=== PATIENT | female | born 1935 | race Caucasian/White ===

== ENCOUNTER 2017-05-13 19:21 | Inpatient (IN) | payer OTHER ==
[~2017-05-13] VITALS: Ht 154.9 cm; Wt 56.5 kg
[~2017-05-13 19:21] MED LIST: AMLODIPINE BESY10 MG PO; APRESOLINE25 MG PO; ATENOLOL50 MG PO; COLCHICINE0.6 MG PO; HYDROCHLOROTHIA25 MG PO; LISINOPRIL10 MG PO; LISINOPRIL20 MG PO; PREDNISONE10 MG PO; TRAMADOL HCL50 MG PO; ULTRAM50 MG PO; ZESTRIL,PRINIVIL5 MG PO
[2017-05-13 22:28] LABS: BASOPHIL COUNT 0.1 K/uL (0-0.1); EOSINOPHIL (%) 0.2 % (0-5); HEMATOCRIT 37.5 % (36.0-46.0); IMMATURE GRANULOCYTE (%) 0.6 % (0.0-0.7); IMMATURE GRANULOCYTE COUNT 0.1 K/uL; INSTRUMENT ABS NEUTROPHIL CT 21.3 K/uL; LYMPHOCYTE COUNT 1.3 K/uL (1.0-2.8); MCH 29.3 PG (29.0-34.0); MCHC 32.8 G/DL (30.0-36.0); MCV 89.3 FL (83-99); MEAN PLAT.VOLUME 11.7 uM^3 (9.5-12.4); MONOCYTE (%) 6.3 % (3-12); MONOCYTE COUNT 1.5 K/uL (0-0.8); NEUTROPHIL (%) 87.4 % (45-76); NEUTROPHIL COUNT 21.3 K/uL (1.8-6.4); PLATELET COUNT 294 K/uL (156-360); RBC DIS.WIDTH-CV 15.2 % (11.8-14.6); RBC DIS.WIDTH-SD 48.9 % (39-53); WHITE BLOOD COUNT 24.4 K/uL (4.1-10.2)
[2017-05-13 22:36] LABS: CHLORIDE 106 mEq/L (99-109); POTASSIUM 4.4 mEq/L (3.7-5.4); SODIUM 140 mEq/L (136-147)
[2017-05-13 22:38] LABS: GLUCOSE 183 mg/dL (70-99)
[2017-05-13 22:39] LABS: ANION GAP 17 MEQ/L (2-14)
[2017-05-13 22:42] LABS: GFR ESTIMATE (CALCULATED) 16 mL/min/
[2017-05-13 22:43] LABS: UREA NITROGEN (BUN) 48 mg/dL (9-23)
[2017-05-14 00:05] LABS: INTER. NORMALIZED RATIO 1.1; PROTHROMBIN TIME 12.1 SEC (10.2-12.9)
[2017-05-14 02:41] VITALS: BP 169/71
[2017-05-14 06:45] LABS: HEMATOCRIT 35.8 % (36.0-46.0); MCH 29.4 PG (29.0-34.0); MCHC 32.4 G/DL (30.0-36.0); MCV 90.9 FL (83-99); MEAN PLAT.VOLUME 12.1 uM^3 (9.5-12.4); PLATELET COUNT 256 K/uL (156-360); RBC DIS.WIDTH-CV 15.4 % (11.8-14.6); RBC DIS.WIDTH-SD 51.1 % (39-53); RED BLOOD COUNT 3.94 M/uL (3.80-5.20); WHITE BLOOD COUNT 13.7 K/uL (4.1-10.2)
[2017-05-14 07:13] LABS: ALKALINE PHOSPHATASE 66 IU/L (3-129); ANION GAP 14 MEQ/L (2-14); CHLORIDE 103 MEQ/L (99-109); GFR ESTIMATE (CALCULATED) 15 mL/min/; GLUCOSE 180 mg/dL (70-99); POTASSIUM 5.3 MEQ/L (3.7-5.4); SAMPLE HEMOLYSIS CHECK 0; SAMPLE ICTERIC CHECK 0; SAMPLE LIPEMIA CHECK 0; SODIUM 138 MEQ/L (136-147); TOTAL BILIRUBIN 0.4 MG/DL (0.0-1.0); UREA NITROGEN (BUN) 58 mg/dL (9-23)
[2017-05-14 07:57] VITALS: BP 134/63
[2017-05-14 15:26] VITALS: BP 131/60
[2017-05-14] MEDS ORDERED: LISINOPRIL40 MG PO (15:31)
[2017-05-14] MEDS ORDERED: ALLOPURINOL300 MG PO (15:31)
[2017-05-14] MEDS ORDERED: CARVEDILOL12.5 MG PO (15:31)
[2017-05-14] MEDS ORDERED: COLCHICINE0.6 M1 PO (15:32)
[2017-05-14] MEDS ORDERED: HYDROCHLOROTH12.5 M3 PO (15:32)
[2017-05-14] MEDS ORDERED: HYDROCHLOROTHIA25 MG PO (15:35)
[2017-05-14 19:29] VITALS: BP 126/59
[2017-05-14 23:48] VITALS: BP 102/50
[2017-05-15] VITALS (8 sets, daily range): BP systolic 114–148; BP diastolic 48–65
[2017-05-15 06:46] LABS: ANION GAP 16 MEQ/L (2-14); CHLORIDE 107 MEQ/L (99-109); GLUCOSE 140 mg/dL (70-99); POTASSIUM 5.2 MEQ/L (3.7-5.4); SAMPLE HEMOLYSIS CHECK 0; SAMPLE ICTERIC CHECK 0; SAMPLE LIPEMIA CHECK 0; SODIUM 140 MEQ/L (136-147); UREA NITROGEN (BUN) 84 mg/dL (9-23)
[2017-05-15 06:48] LABS: GFR ESTIMATE (CALCULATED) 9 mL/min/
[2017-05-15 15:36] LABS: ADD MIUA? YES; BILIRUBIN NEGATIVE; BLOOD SMALL; COLOR YELLOW ((YELLOW)); GLUCOSE (STRIP) NEGATIVE; KETONES NEGATIVE; LEUKOCYTES NEGATIVE; NITRITE NEGATIVE; PROTEIN (STRIP) 30; SPECIFIC GRAVITY 1.015 (1.000-1.030); UROBILINOGEN 0.2 MG/DL (0.2-1.0)
[2017-05-15 16:58] LABS: BACTERIA NONE SEEN /HPF; EPITHELIAL CELLS RARE /HPF; MUCUS TRACE /LPF; RED BLOOD CELLS 0-5 /HPF (0-5); WHITE BLOOD CELLS 0-5 /HPF (0-5)
[2017-05-16 03:43] VITALS: BP 136/59
[2017-05-16 08:50] VITALS: BP 148/67
[2017-05-16] MEDS ORDERED: ASPIRIN81 M2 PO (09:54)
[2017-05-16] MEDS ORDERED: CARVEDILOL25 MG PO (09:55)
[2017-05-16] MEDS ORDERED: TRAMADOL HCL50 MG PO (10:00)
[2017-05-16 10:26] LABS: HEMATOCRIT 27.6 % (36.0-46.0); MCH 29.2 PG (29.0-34.0); MCHC 32.2 G/DL (30.0-36.0); MCV 90.5 FL (83-99); MEAN PLAT.VOLUME 12.5 uM^3 (9.5-12.4); PLATELET COUNT 183 K/uL (156-360); RBC DIS.WIDTH-CV 15.6 % (11.8-14.6); RBC DIS.WIDTH-SD 51.8 % (39-53)
[2017-05-16 10:31] LABS: ANION GAP 11 MEQ/L (2-14); CHLORIDE 109 MEQ/L (99-109); GLUCOSE 124 mg/dL (70-99); SAMPLE HEMOLYSIS CHECK 0; SAMPLE ICTERIC CHECK 0; SAMPLE LIPEMIA CHECK 0; SODIUM 142 MEQ/L (136-147); UREA NITROGEN (BUN) 72 mg/dL (9-23)
[2017-05-16 10:37] LABS: RED BLOOD COUNT 3.05 M/uL (3.80-5.20)
[2017-05-16 10:38] LABS: GFR ESTIMATE (CALCULATED) 20 mL/min/; POTASSIUM 4.1 MEQ/L (3.7-5.4)
[2017-05-16 11:41] LABS: ADD MIUA? YES; BILIRUBIN NEGATIVE; BLOOD SMALL; COLOR YELLOW ((YELLOW)); GLUCOSE (STRIP) NEGATIVE; KETONES NEGATIVE; LEUKOCYTES NEGATIVE; NITRITE NEGATIVE; PROTEIN (STRIP) NEGATIVE; SPECIFIC GRAVITY 1.012 (1.000-1.030); UROBILINOGEN 0.2 MG/DL (0.2-1.0)
[2017-05-16 12:02] LABS: BACTERIA RARE /HPF; EPITHELIAL CELLS 1+ /HPF; MUCUS TRACE /LPF; RED BLOOD CELLS 0-5 /HPF (0-5); WHITE BLOOD CELLS 0-5 /HPF (0-5)
[2017-05-16 12:15] VITALS: BP 161/67
[2017-05-16 12:59] LABS: UR CREATININE CONCENTRATION 65.4 MG/DL
[2017-05-16 16:39] VITALS: BP 169/70
[2017-05-16 20:17] VITALS: BP 163/71
[2017-05-17 00:02] VITALS: BP 142/66
[2017-05-17 04:43] VITALS: BP 143/59
[2017-05-17 06:25] LABS: EOSINOPHIL (%) 1.2 % (0-5); EOSINOPHIL COUNT 0.1 K/uL (0-0.3); HEMATOCRIT 24.7 % (36.0-46.0); IMMATURE GRANULOCYTE (%) 0.6 % (0.0-0.7); IMMATURE GRANULOCYTE COUNT 0.1 K/uL; INSTRUMENT ABS NEUTROPHIL CT 8.1 K/uL; LYMPHOCYTE COUNT 1.1 K/uL (1.0-2.8); MCH 30.5 PG (29.0-34.0); MCHC 33.2 G/DL (30.0-36.0); MCV 91.8 FL (83-99); MEAN PLAT.VOLUME 12.7 uM^3 (9.5-12.4); MONOCYTE (%) 8.5 % (3-12); MONOCYTE COUNT 0.9 K/uL (0-0.8); NEUTROPHIL (%) 78.5 % (45-76); NEUTROPHIL COUNT 8.1 K/uL (1.8-6.4); PLATELET COUNT 180 K/uL (156-360); RBC DIS.WIDTH-CV 15.6 % (11.8-14.6); RED BLOOD COUNT 2.69 M/uL (3.80-5.20); WHITE BLOOD COUNT 10.3 K/uL (4.1-10.2)
[2017-05-17 06:48] LABS: ALKALINE PHOSPHATASE 51 IU/L (3-129); ANION GAP 9 MEQ/L (2-14); CHLORIDE 113 MEQ/L (99-109); GLUCOSE 120 mg/dL (70-99); MAGNESIUM 2.1 mg/dl (1.3-2.7); POTASSIUM 3.6 MEQ/L (3.7-5.4); SAMPLE HEMOLYSIS CHECK 0; SAMPLE ICTERIC CHECK 0; SAMPLE LIPEMIA CHECK 0; SODIUM 146 MEQ/L (136-147); UREA NITROGEN (BUN) 55 mg/dL (9-23)
[2017-05-17 06:49] LABS: GFR ESTIMATE (CALCULATED) 29 mL/min/; TOTAL BILIRUBIN 0.6 MG/DL (0.0-1.0)
[2017-05-17 08:04] VITALS: BP 137/63
[2017-05-17 11:50] VITALS: BP 152/67
[2017-05-17 16:03] VITALS: BP 137/62
[2017-05-17 23:45] VITALS: BP 169/70
[2017-05-18 04:34] VITALS: BP 146/62
[2017-05-18 07:17] LABS: EOSINOPHIL (%) 3.8 % (0-5); EOSINOPHIL COUNT 0.4 K/uL (0-0.3); HEMATOCRIT 25.3 % (36.0-46.0); IMMATURE GRANULOCYTE (%) 0.9 % (0.0-0.7); IMMATURE GRANULOCYTE COUNT 0.1 K/uL; INSTRUMENT ABS NEUTROPHIL CT 7.2 K/uL; LYMPHOCYTE COUNT 1.1 K/uL (1.0-2.8); MCH 30.7 PG (29.0-34.0); MCHC 33.2 G/DL (30.0-36.0); MCV 92.3 FL (83-99); MEAN PLAT.VOLUME 12.9 uM^3 (9.5-12.4); MONOCYTE (%) 7.8 % (3-12); MONOCYTE COUNT 0.7 K/uL (0-0.8); NEUTROPHIL (%) 75.7 % (45-76); NEUTROPHIL COUNT 7.2 K/uL (1.8-6.4); PLATELET COUNT 197 K/uL (156-360); RBC DIS.WIDTH-CV 15.9 % (11.8-14.6); RBC DIS.WIDTH-SD 52.7 % (39-53); RED BLOOD COUNT 2.74 M/uL (3.80-5.20); WHITE BLOOD COUNT 9.5 K/uL (4.1-10.2)
[2017-05-18 07:40] LABS: ANION GAP 4 MEQ/L (2-14); CHLORIDE 112 MEQ/L (99-109); CREATINE KINASE 341 IU/L (1-294); GFR ESTIMATE (CALCULATED) 35 mL/min/; GLUCOSE 109 mg/dL (70-99); MAGNESIUM 1.9 mg/dl (1.3-2.7); POTASSIUM 3.6 MEQ/L (3.7-5.4); SAMPLE HEMOLYSIS CHECK 0; SAMPLE ICTERIC CHECK 0; SAMPLE LIPEMIA CHECK 0; SODIUM 143 MEQ/L (136-147); UREA NITROGEN (BUN) 34 mg/dL (9-23)
[2017-05-18 07:50] VITALS: BP 145/100; BP 172/75
[2017-05-18 11:19] VITALS: BP 166/72
[2017-05-18 16:10] VITALS: BP 142/67
[2017-05-18 19:44] VITALS: BP 167/74
[2017-05-19] VITALS (7 sets, daily range): BP systolic 133–187; BP diastolic 59–77
[2017-05-19 07:14] LABS: IRON 49 MCG/DL (35-150)
[2017-05-20] VITALS (8 sets, daily range): BP systolic 147–192; BP diastolic 66–84
[2017-05-20 10:36] LABS: ANION GAP 8 MEQ/L (2-14); CHLORIDE 111 MEQ/L (99-109); POTASSIUM 3.6 MEQ/L (3.7-5.4); SAMPLE HEMOLYSIS CHECK 0; SAMPLE ICTERIC CHECK 0; SAMPLE LIPEMIA CHECK 0; SODIUM 141 MEQ/L (136-147)
[2017-05-20 10:42] LABS: GFR ESTIMATE (CALCULATED) 46 mL/min/; UREA NITROGEN (BUN) 26 mg/dL (9-23)
[2017-05-20 10:45] LABS: GLUCOSE 198 mg/dL (70-99)
[2017-05-21 03:48] VITALS: BP 160/78
[2017-05-21 05:40] LABS: ANION GAP 8 MEQ/L (2-14); CHLORIDE 110 MEQ/L (99-109); GFR ESTIMATE (CALCULATED) 42 mL/min/; SAMPLE HEMOLYSIS CHECK 0; SAMPLE ICTERIC CHECK 0; SAMPLE LIPEMIA CHECK 0; SODIUM 142 MEQ/L (136-147); UREA NITROGEN (BUN) 24 mg/dL (9-23)
[2017-05-21 05:41] LABS: GLUCOSE 102 mg/dL (70-99); MAGNESIUM 1.6 mg/dl (1.3-2.7)
[2017-05-21 08:28] VITALS: BP 180/78
[2017-05-21 11:43] VITALS: BP 122/42
[2017-05-21 12:00] VITALS: BP 146/68
[2017-05-21] MEDS ORDERED: HYDROCODON-ACE1 EAC7 PO (13:41)
== END 2017-05-21 15:27 | DRG 200 ==
LOC: EME → EDBD 19:21 → 3EAST 05-14 00:47 → EDOF 05-14 00:47 → ENRESERV 05-14 00:56 → 3EAST 05-14 02:05
PROVIDERS: Emergency Medicine; Internal Medicine Nephrology; Surgery; Thoracic Surgery (Cardiothoracic Vascular Surgery)
PROC: 0W9B30Z Drainage of Left Pleural Cavity with Drainage Device, Percutaneous Approach (ICD-10-PCS; principal; 2017-05-14)
DX: S27.0XXA Traumatic pneumothorax, initial encounter (principal); S22.42XA Multiple fractures of ribs, left side, initial encounter for closed fracture; S42.112A Displaced fracture of body of scapula, left shoulder, initial encounter for closed fracture; W10.9XXA Fall (on) (from) unspecified stairs and steps, initial encounter; M62.82 Rhabdomyolysis; N17.9 Acute kidney failure, unspecified; E87.2 Acidosis; I12.9 Hypertensive chronic kidney disease with stage 1 through stage 4 chronic kidney disease, or unspecified chronic kidney disease; N18.3 Chronic kidney disease, stage 3 (moderate); M10.9 Gout, unspecified; K21.9 Gastro-esophageal reflux disease without esophagitis; D64.9 Anemia, unspecified; L98.9 Disorder of the skin and subcutaneous tissue, unspecified; Z79.82 Long term (current) use of aspirin
CPT/HCPCS: 70450; 71010; 71250; 72125; 74176; 76770; 80048; 80053; 81003; 82550; 82570; 83540; 83735; 84100; 84156; 84300; 84466; 84550; 85025; 85027; 85610; 85730; 92610 GN; 93005; 94010; 94640; 94640 76; 94667; 94668; 94799; 97530 GO; 99202; 99281; 99285; J1170; J1644; J2250; J3010; J3480; J7030; J7040; J7120

== ENCOUNTER 2017-05-29 11:13 | Inpatient (IN) | payer OTHER ==
[~2017-05-29] VITALS: Ht 152.4 cm; Wt 54.4 kg
[~2017-05-29 11:13] MED LIST changes: +ALLOPURINOL300 MG PO; +ASPIRIN81 M2 PO; +CARVEDILOL12.5 MG PO; +CARVEDILOL25 MG PO; +COLCHICINE0.6 M1 PO; +HYDROCHLOROTH12.5 M3 PO; +HYDROCODON-ACE1 EAC7 PO; +LISINOPRIL40 MG PO
[2017-05-29 11:39] LABS: HEMATOCRIT 25.2 % (36.0-46.0); MCHC 31.3 G/DL (30.0-36.0); MCV 95.8 FL (83-99); PLATELET COUNT 467 K/uL (156-360); RBC DIS.WIDTH-CV 17.4 % (11.8-14.6); RBC DIS.WIDTH-SD 60.3 % (39-53); WHITE BLOOD COUNT 13.3 K/uL (4.1-10.2)
[2017-05-29 11:40] LABS: RED BLOOD COUNT 2.63 M/uL (3.80-5.20)
[2017-05-29 11:47] LABS: CHLORIDE 103 mEq/L (99-109); POTASSIUM 3.9 mEq/L (3.7-5.4); SODIUM 143 mEq/L (136-147)
[2017-05-29 11:49] LABS: GLUCOSE 189 mg/dL (70-99)
[2017-05-29 11:50] LABS: ANION GAP 12 MEQ/L (2-14)
[2017-05-29 11:52] LABS: GFR ESTIMATE (CALCULATED) 23 mL/min/
[2017-05-29 11:53] LABS: UREA NITROGEN (BUN) 58 mg/dL (9-23)
[2017-05-29 13:42] VITALS: BP 133/47
[2017-05-29 14:04] VITALS: BP 142/60
[2017-05-29 15:05] VITALS: BP 148/48
[2017-05-29] MEDS ORDERED: DYNAPEN500 MG PO (16:13)
[2017-05-29] MEDS ORDERED: FEOSOL325 MG PO (16:13)
[2017-05-29] MEDS ORDERED: MILK OF MAGN PO (16:15)
[2017-05-29] MEDS ORDERED: CENTANY1 EACH TP (16:15)
[2017-05-29] MEDS ORDERED: MIRALAX17 GM PO (16:16)
[2017-05-29] MEDS ORDERED: TUMS500 MG PO (16:17)
[2017-05-29] MEDS ORDERED: TYLENOL REGULA325 MG PO (16:18)
[2017-05-29] MEDS ORDERED: DULCOLAX10 MG PR (16:18)
[2017-05-29 17:22] VITALS: BP 129/55
[2017-05-29 19:57] LABS: HEMATOCRIT 26.4 % (36.0-46.0)
[2017-05-29 20:00] VITALS: BP 148/70
[2017-05-29 23:19] VITALS: BP 145/67
[2017-05-30 03:35] VITALS: BP 147/63
[2017-05-30 06:49] LABS: HEMATOCRIT 26.6 % (36.0-46.0); MCH 30.9 PG (29.0-34.0); MCHC 32.7 G/DL (30.0-36.0); MCV 94.3 FL (83-99); MEAN PLAT.VOLUME 11.4 uM^3 (9.5-12.4); PLATELET COUNT 377 K/uL (156-360); RBC DIS.WIDTH-SD 57.2 % (39-53); RED BLOOD COUNT 2.82 M/uL (3.80-5.20); WHITE BLOOD COUNT 9.1 K/uL (4.1-10.2)
[2017-05-30 06:55] LABS: INTER. NORMALIZED RATIO 1.1; PROTHROMBIN TIME 12.6 SEC (10.2-12.9)
[2017-05-30 07:17] LABS: ALKALINE PHOSPHATASE 79 IU/L (3-129); ANION GAP 8 MEQ/L (2-14); CHLORIDE 105 MEQ/L (99-109); POTASSIUM 4.1 MEQ/L (3.7-5.4); SAMPLE HEMOLYSIS CHECK 0; SAMPLE ICTERIC CHECK 0; SAMPLE LIPEMIA CHECK 0; SODIUM 143 MEQ/L (136-147); TOTAL BILIRUBIN 0.4 MG/DL (0.0-1.0); UREA NITROGEN (BUN) 50 mg/dL (9-23)
[2017-05-30 07:18] LABS: GFR ESTIMATE (CALCULATED) 31 mL/min/; GLUCOSE 105 mg/dL (70-99)
[2017-05-30 08:27] VITALS: BP 160/58
[2017-05-30 16:16] VITALS: BP 157/65
[2017-05-30 19:47] VITALS: BP 153/67
[2017-05-30 20:04] LABS: HEMATOCRIT 25.3 % (36.0-46.0); MCV 94.4 FL (83-99)
[2017-05-31 00:31] VITALS: BP 131/66
[2017-05-31 03:12] VITALS: BP 157/70
[2017-05-31 06:38] LABS: HEMATOCRIT 25.7 % (36.0-46.0); MCH 29.7 PG (29.0-34.0); MCHC 31.5 G/DL (30.0-36.0); MCV 94.1 FL (83-99); MEAN PLAT.VOLUME 10.9 uM^3 (9.5-12.4); PLATELET COUNT 305 K/uL (156-360); RBC DIS.WIDTH-CV 16.7 % (11.8-14.6); RBC DIS.WIDTH-SD 56.2 % (39-53); RED BLOOD COUNT 2.73 M/uL (3.80-5.20); WHITE BLOOD COUNT 7.7 K/uL (4.1-10.2)
[2017-05-31 07:05] LABS: ANION GAP 8 MEQ/L (2-14); CHLORIDE 104 MEQ/L (99-109); GFR ESTIMATE (CALCULATED) 38 mL/min/; GLUCOSE 102 mg/dL (70-99); POTASSIUM 3.9 MEQ/L (3.7-5.4); SAMPLE HEMOLYSIS CHECK 0; SAMPLE ICTERIC CHECK 0; SAMPLE LIPEMIA CHECK 0; SODIUM 142 MEQ/L (136-147); UREA NITROGEN (BUN) 38 mg/dL (9-23)
[2017-05-31 07:36] VITALS: BP 130/62
[2017-05-31 11:54] VITALS: BP 127/59
[2017-05-31] MEDS ORDERED: SUCRALFATE1 GM PO (12:11)
[2017-05-31] MEDS ORDERED: ALLOPURINOL100 MG PO (12:12)
[2017-05-31] MEDS ORDERED: Colchicine,Colcrys PO (12:13)
== END 2017-05-31 14:50 | DRG 378 ==
LOC: EME 11:13 → EDOF 13:49 → 5SOUTH 13:49 → ENRESERV 13:51 → 5SOUTH 15:57
PROVIDERS: Internal Medicine; Internal Medicine Gastroenterology
DX: K92.2 Gastrointestinal hemorrhage, unspecified (principal); D62 Acute posthemorrhagic anemia; E78.5 Hyperlipidemia, unspecified; I73.9 Peripheral vascular disease, unspecified; K21.9 Gastro-esophageal reflux disease without esophagitis; K22.70 Barrett's esophagus without dysplasia; I12.9 Hypertensive chronic kidney disease with stage 1 through stage 4 chronic kidney disease, or unspecified chronic kidney disease; N18.3 Chronic kidney disease, stage 3 (moderate); S42.11 Fracture of body of scapula; S22.42XS Multiple fractures of ribs, left side, sequela; M10.9 Gout, unspecified; Z66 Do not resuscitate; F41.9 Anxiety disorder, unspecified; K44.9 Diaphragmatic hernia without obstruction or gangrene; E44.1 Mild protein-calorie malnutrition; N17.9 Acute kidney failure, unspecified
CPT/HCPCS: 71010; 80048 91; 80053; 80069; 84100; 85014; 85018; 85027; 85610; 86850; 86900; 86901; 86920; 88305; 88342 TC; 93005; 94799; 99281; 99285; C1755; C9113; P9016

== ENCOUNTER 2017-06-18 12:46 | Emergency (ER) | payer OTHER ==
[~2017-06-18] VITALS: Ht 157.5 cm; Wt 52.8 kg
[~2017-06-18 12:46] MED LIST changes: +ALLOPURINOL100 MG PO; +CENTANY1 EACH TP; +Colchicine,Colcrys PO; +DULCOLAX10 MG PR; +DYNAPEN500 MG PO; +FEOSOL325 MG PO; +MILK OF MAGN PO; +MIRALAX17 GM PO; +SUCRALFATE1 GM PO; +TUMS500 MG PO; +TYLENOL REGULA325 MG PO
[2017-06-18 13:32] LABS: EOSINOPHIL (%) 1.9 % (0-5); EOSINOPHIL COUNT 0.2 K/uL (0-0.3); IMMATURE GRANULOCYTE COUNT 0.1 K/uL; INSTRUMENT ABS NEUTROPHIL CT 6.2 K/uL; MCH 28.6 PG (29.0-34.0); MCHC 30.6 G/DL (30.0-36.0); MCV 93.3 FL (83-99); MEAN PLAT.VOLUME 11.9 uM^3 (9.5-12.4); MONOCYTE COUNT 0.6 K/uL (0-0.8); NEUTROPHIL (%) 77.4 % (45-76); NEUTROPHIL COUNT 6.2 K/uL (1.8-6.4); PLATELET COUNT 320 K/uL (156-360); RBC DIS.WIDTH-CV 15.5 % (11.8-14.6); RBC DIS.WIDTH-SD 53.2 % (39-53); RED BLOOD COUNT 3.43 M/uL (3.80-5.20)
[2017-06-18 13:38] LABS: INTER. NORMALIZED RATIO 1.2; PROTHROMBIN TIME 13.1 SEC (10.2-12.9)
[2017-06-18 13:40] LABS: PTT 28.7 SEC (25-37)
[2017-06-18 13:42] LABS: CHLORIDE 107 mEq/L (99-109); POTASSIUM 3.5 mEq/L (3.7-5.4); SODIUM 147 mEq/L (136-147)
[2017-06-18 13:43] LABS: MAGNESIUM 2.4 mg/dL (1.3-2.7)
[2017-06-18 13:45] LABS: GLUCOSE 90 mg/dL (70-99)
[2017-06-18 13:46] LABS: ANION GAP 15 MEQ/L (2-14)
[2017-06-18 13:47] LABS: TOTAL BILIRUBIN 0.2 mg/dL (0.0-1.0)
[2017-06-18 13:48] LABS: ALKALINE PHOSPHATASE 105 IU/L (3-129)
[2017-06-18 13:49] LABS: GFR ESTIMATE (CALCULATED) 23 mL/min/
[2017-06-18 13:50] LABS: UREA NITROGEN (BUN) 35 mg/dL (9-23)
[2017-06-18 13:52] LABS: CREATINE KINASE 53 IU/L (1-294); LIPASE 36 U/L (1.0-51.0); TOTAL CK 53 IU/L (1-294)
[2017-06-18 13:53] LABS: TROP-I INTERPRETATION NEGATIVE; TROPONIN-I 0.03 ng/mL (0.0-0.30)
[2017-06-18 13:58] LABS: CK-MB 1.5 ng/mL (0.0-4.9)
[2017-06-18 14:51] LABS: ADD MIUA? YES; BILIRUBIN NEGATIVE; BLOOD NEGATIVE; COLOR YELLOW ((YELLOW)); GLUCOSE (STRIP) NEGATIVE; KETONES NEGATIVE; LEUKOCYTES MODERATE; NITRITE NEGATIVE; PROTEIN (STRIP) 30; SPECIFIC GRAVITY 1.014 (1.000-1.030); UROBILINOGEN 0.2 MG/DL (0.2-1.0)
[2017-06-18 14:59] LABS: BACTERIA RARE /HPF; EPITHELIAL CELLS RARE /HPF; MUCUS TRACE /LPF; UCUL ADDED? YES; WHITE BLOOD CELLS TNTC /HPF (0-5)
[2017-06-18] MEDS ORDERED: CIPRO500 MG PO (17:18)
[2017-06-18] MEDS ORDERED: COLACE100 MG PO (17:18)
[2017-06-18] MEDS ORDERED: PEPCID20 MG PO (18:08)
[2017-06-18 19:17] VITALS: BP 137/60
== END 2017-06-18 19:18 ==
LOC: EME 12:46
PROVIDERS: Emergency Medicine
DX: N39.0 Urinary tract infection, site not specified (principal); K59.00 Constipation, unspecified; I12.9 Hypertensive chronic kidney disease with stage 1 through stage 4 chronic kidney disease, or unspecified chronic kidney disease; N18.9 Chronic kidney disease, unspecified; K44.9 Diaphragmatic hernia without obstruction or gangrene; R11.10 Vomiting, unspecified; K21.9 Gastro-esophageal reflux disease without esophagitis; M10.9 Gout, unspecified
CPT/HCPCS: 71010; 74000; 74176; 80053; 81003; 82550; 82553; 83690; 83735; 84443; 84484; 85025; 85610; 85730; 87077; 87086; 87186; 93005; 99281; 99285

== ENCOUNTER → 2017-07-10 | Outpatient (CLI) | payer OTHER ==
[~2017-07-10] MED LIST changes: +CIPRO500 MG PO; +COLACE100 MG PO; +PEPCID20 MG PO
== END ==
LOC: RAD 08:57
DX: R13.19 Other dysphagia (principal); R05 Cough; J69.0 Pneumonitis due to inhalation of food and vomit
CPT/HCPCS: 74230; 92611 GN; G8996 GN CH; G8997 GN CH; G8998 GN CH

== ENCOUNTER 2017-07-30 13:56 | Inpatient (IN) | payer OTHER ==
[~2017-07-30] VITALS: Ht 154.9 cm; Wt 46.0 kg
[2017-07-30 14:41] LABS: HEMATOCRIT 31.8 % (36.0-46.0); MCH 28.2 PG (29.0-34.0); MCV 85.3 FL (83-99); MEAN PLAT.VOLUME 13.5 uM^3 (9.5-12.4); PLATELET COUNT 264 K/uL (156-360); RBC DIS.WIDTH-CV 16.4 % (11.8-14.6); RBC DIS.WIDTH-SD 50.6 % (39-53); RED BLOOD COUNT 3.73 M/uL (3.80-5.20); WHITE BLOOD COUNT 22.7 K/uL (4.1-10.2)
[2017-07-30 14:50] LABS: CHLORIDE 108 mEq/L (99-109); POTASSIUM 2.5 mEq/L (3.7-5.4); SODIUM 136 mEq/L (136-147)
[2017-07-30 14:53] LABS: ANION GAP 12 MEQ/L (2-14)
[2017-07-30 14:54] LABS: TOTAL BILIRUBIN 0.2 mg/dL (0.0-1.0)
[2017-07-30 14:56] LABS: ALKALINE PHOSPHATASE 119 IU/L (3-129); GFR ESTIMATE (CALCULATED) 14 mL/min/; GLUCOSE 119 mg/dL (70-99)
[2017-07-30 14:57] LABS: UREA NITROGEN (BUN) 74 mg/dL (9-23)
[2017-07-30 14:59] LABS: LIPASE 40 U/L (1.0-51.0)
[2017-07-30] MEDS ORDERED: PAXIL10 MG PO (19:49)
[2017-07-30] MEDS ORDERED: REMERON15 M2 PO (19:50)
[2017-07-30] MEDS ORDERED: SENNA PLUS TAB1 EACH PO (19:53)
[2017-07-30] MEDS ORDERED: MARINOL2.5 M1 PO (19:57)
[2017-07-30] MEDS ORDERED: PANTOPRAZOLE SO40 MG PO (19:58)
[2017-07-30] MEDS ORDERED: ZOFRAN4 MG PO (20:10)
[2017-07-30 20:27] LABS: BASOPHIL COUNT 0.1 K/uL (0-0.1); EOSINOPHIL (%) 0.3 % (0-5); EOSINOPHIL COUNT 0.1 K/uL (0-0.3); IMMATURE GRANULOCYTE (%) 2.1 % (0.0-0.7); IMMATURE GRANULOCYTE COUNT 0.5 K/uL; INSTRUMENT ABS NEUTROPHIL CT 20.1 K/uL; LYMPHOCYTE COUNT 0.9 K/uL (1.0-2.8); MONOCYTE (%) 5.8 % (3-12); MONOCYTE COUNT 1.3 K/uL (0-0.8); NEUTROPHIL (%) 87.7 % (45-76); NEUTROPHIL COUNT 20.1 K/uL (1.8-6.4)
[2017-07-30 20:42] LABS: INTER. NORMALIZED RATIO 1.4; PROTHROMBIN TIME 15.7 SEC (10.2-12.9)
[2017-07-30 20:48] LABS: MAGNESIUM 1.5 mg/dL (1.3-2.7)
[2017-07-30 21:46] VITALS: BP 112/53
[2017-07-30 23:28] VITALS: BP 112/53
[2017-07-31 04:19] VITALS: BP 108/55
[2017-07-31 06:59] LABS: HEMATOCRIT 27.1 % (36.0-46.0); MCH 27.6 PG (29.0-34.0); MCHC 31.7 G/DL (30.0-36.0); MCV 86.9 FL (83-99); MEAN PLAT.VOLUME 13.7 uM^3 (9.5-12.4); PLATELET COUNT 250 K/uL (156-360); RBC DIS.WIDTH-CV 16.6 % (11.8-14.6); RED BLOOD COUNT 3.12 M/uL (3.80-5.20); WHITE BLOOD COUNT 23.2 K/uL (4.1-10.2)
[2017-07-31 07:28] LABS: ALKALINE PHOSPHATASE 95 IU/L (3-129); ANION GAP 12 MEQ/L (2-14); CHLORIDE 114 MEQ/L (99-109); GFR ESTIMATE (CALCULATED) 18 mL/min/; GLUCOSE 67 mg/dL (70-99); POTASSIUM 3.1 MEQ/L (3.7-5.4); SAMPLE HEMOLYSIS CHECK 0; SAMPLE ICTERIC CHECK 0; SAMPLE LIPEMIA CHECK 0; SODIUM 142 MEQ/L (136-147); TOTAL BILIRUBIN 0.2 MG/DL (0.0-1.0); UREA NITROGEN (BUN) 61 mg/dL (9-23)
[2017-07-31 07:35] VITALS: BP 116/57
[2017-07-31 11:07] VITALS: BP 117/52
[2017-07-31 15:27] VITALS: BP 114/56
[2017-07-31 15:42] LABS: ANION GAP 12 MEQ/L (2-14); CHLORIDE 118 MEQ/L (99-109); GFR ESTIMATE (CALCULATED) 20 mL/min/; POTASSIUM 3.1 MEQ/L (3.7-5.4); SAMPLE HEMOLYSIS CHECK 0; SAMPLE ICTERIC CHECK 0; SAMPLE LIPEMIA CHECK 0; SODIUM 146 MEQ/L (136-147); UREA NITROGEN (BUN) 57 mg/dL (9-23)
[2017-07-31 15:48] LABS: GLUCOSE 86 mg/dL (70-99)
[2017-07-31 18:39] LABS: BASOPHIL COUNT 0.1 K/uL (0-0.1); EOSINOPHIL (%) 0.3 % (0-5); EOSINOPHIL COUNT 0.1 K/uL (0-0.3); HEMATOCRIT 29.1 % (36.0-46.0); IMMATURE GRANULOCYTE (%) 2.3 % (0.0-0.7); IMMATURE GRANULOCYTE COUNT 0.4 K/uL; INSTRUMENT ABS NEUTROPHIL CT 16.5 K/uL; LYMPHOCYTE COUNT 0.6 K/uL (1.0-2.8); MCH 27.5 PG (29.0-34.0); MCHC 31.3 G/DL (30.0-36.0); MCV 87.9 FL (83-99); MEAN PLAT.VOLUME 13.2 uM^3 (9.5-12.4); MONOCYTE (%) 5.9 % (3-12); MONOCYTE COUNT 1.1 K/uL (0-0.8); NEUTROPHIL COUNT 16.5 K/uL (1.8-6.4); PLATELET COUNT 223 K/uL (156-360); RBC DIS.WIDTH-CV 16.7 % (11.8-14.6); RBC DIS.WIDTH-SD 53.6 % (39-53); RED BLOOD COUNT 3.31 M/uL (3.80-5.20); WHITE BLOOD COUNT 18.7 K/uL (4.1-10.2)
[2017-07-31 19:22] LABS: ANION GAP 10 MEQ/L (2-14); CHLORIDE 119 MEQ/L (99-109); GFR ESTIMATE (CALCULATED) 22 mL/min/; SAMPLE HEMOLYSIS CHECK 0; SAMPLE ICTERIC CHECK 0; SAMPLE LIPEMIA CHECK 0; SODIUM 144 MEQ/L (136-147); UREA NITROGEN (BUN) 55 mg/dL (9-23)
[2017-07-31 19:34] VITALS: BP 143/65
[2017-07-31 19:56] LABS: GLUCOSE 110 mg/dL (70-99)
[2017-08-01] VITALS (7 sets, daily range): BP systolic 103–137; BP diastolic 53–68
[2017-08-01 05:50] LABS: C DIFF TOXIN POSITIVE (NEGATIVE)
[2017-08-01 06:07] LABS: PROBE CHECK PASS
[2017-08-01 07:13] LABS: BASOPHIL COUNT 0.1 K/uL (0-0.1); EOSINOPHIL (%) 0.7 % (0-5); EOSINOPHIL COUNT 0.1 K/uL (0-0.3); HEMATOCRIT 26.8 % (36.0-46.0); IMMATURE GRANULOCYTE (%) 1.8 % (0.0-0.7); IMMATURE GRANULOCYTE COUNT 0.3 K/uL; INSTRUMENT ABS NEUTROPHIL CT 14.1 K/uL; LYMPHOCYTE COUNT 0.7 K/uL (1.0-2.8); MCH 27.5 PG (29.0-34.0); MCV 88.7 FL (83-99); MONOCYTE (%) 7.5 % (3-12); MONOCYTE COUNT 1.3 K/uL (0-0.8); NEUTROPHIL (%) 85.2 % (45-76); NEUTROPHIL COUNT 14.1 K/uL (1.8-6.4); PLATELET COUNT 234 K/uL (156-360); RBC DIS.WIDTH-CV 17.1 % (11.8-14.6); RBC DIS.WIDTH-SD 54.8 % (39-53); RED BLOOD COUNT 3.02 M/uL (3.80-5.20); WHITE BLOOD COUNT 16.6 K/uL (4.1-10.2)
[2017-08-01 07:27] LABS: ANION GAP 10 MEQ/L (2-14); CHLORIDE 122 MEQ/L (99-109); GFR ESTIMATE (CALCULATED) 25 mL/min/; GLUCOSE 81 mg/dL (70-99); MAGNESIUM 1.9 mg/dl (1.3-2.7); POTASSIUM 3.8 MEQ/L (3.7-5.4); SAMPLE HEMOLYSIS CHECK 0; SAMPLE ICTERIC CHECK 0; SAMPLE LIPEMIA CHECK 0; SODIUM 148 MEQ/L (136-147); UREA NITROGEN (BUN) 47 mg/dL (9-23)
[2017-08-02 03:49] VITALS: BP 139/71
[2017-08-02 06:06] LABS: HEMATOCRIT 26.4 % (36.0-46.0); MCH 27.4 PG (29.0-34.0); MCHC 31.8 G/DL (30.0-36.0); MEAN PLAT.VOLUME 13.1 uM^3 (9.5-12.4); PLATELET COUNT 214 K/uL (156-360); RBC DIS.WIDTH-CV 17.2 % (11.8-14.6); RBC DIS.WIDTH-SD 52.9 % (39-53); RED BLOOD COUNT 3.07 M/uL (3.80-5.20); WHITE BLOOD COUNT 13.7 K/uL (4.1-10.2)
[2017-08-02 06:39] LABS: ANION GAP 10 MEQ/L (2-14); CHLORIDE 112 MEQ/L (99-109); GFR ESTIMATE (CALCULATED) 31 mL/min/; GLUCOSE 140 mg/dL (70-99); POTASSIUM 3.4 MEQ/L (3.7-5.4); SAMPLE HEMOLYSIS CHECK 0; SAMPLE ICTERIC CHECK 0; SAMPLE LIPEMIA CHECK 0; SODIUM 144 MEQ/L (136-147); UREA NITROGEN (BUN) 33 mg/dL (9-23)
[2017-08-02 07:34] VITALS: BP 136/68
[2017-08-02 12:20] VITALS: BP 142/76
[2017-08-02 16:16] VITALS: BP 136/68
[2017-08-02 19:14] VITALS: BP 131/77
[2017-08-02 23:56] VITALS: BP 131/71
[2017-08-03 03:50] VITALS: BP 110/74
[2017-08-03 07:05] LABS: HEMATOCRIT 27.5 % (36.0-46.0); MCH 27.9 PG (29.0-34.0); MCHC 32.4 G/DL (30.0-36.0); MCV 86.2 FL (83-99); MEAN PLAT.VOLUME 13.6 uM^3 (9.5-12.4); PLATELET COUNT 198 K/uL (156-360); RBC DIS.WIDTH-CV 17.2 % (11.8-14.6); RBC DIS.WIDTH-SD 54.4 % (39-53); RED BLOOD COUNT 3.19 M/uL (3.80-5.20); WHITE BLOOD COUNT 10.9 K/uL (4.1-10.2)
[2017-08-03 07:26] LABS: ANION GAP 10 MEQ/L (2-14); CHLORIDE 110 MEQ/L (99-109); GFR ESTIMATE (CALCULATED) 33 mL/min/; SAMPLE HEMOLYSIS CHECK 0; SAMPLE ICTERIC CHECK 0; SAMPLE LIPEMIA CHECK 0; SODIUM 142 MEQ/L (136-147); UREA NITROGEN (BUN) 22 mg/dL (9-23)
[2017-08-03 07:27] LABS: GLUCOSE 84 mg/dL (70-99); MAGNESIUM 1.3 mg/dl (1.3-2.7); POTASSIUM 4.3 MEQ/L (3.7-5.4)
[2017-08-03 07:36] VITALS: BP 118/76
[2017-08-03 11:43] VITALS: BP 108/76
[2017-08-03 16:57] VITALS: BP 112/78
[2017-08-03 19:31] VITALS: BP 126/60
[2017-08-03 23:09] VITALS: BP 124/62
[2017-08-04 03:13] VITALS: BP 112/60
[2017-08-04 03:14] VITALS: BP 150/64
[2017-08-04 07:18] LABS: BASOPHIL COUNT 0.1 K/uL (0-0.1); EOSINOPHIL (%) 0.8 % (0-5); EOSINOPHIL COUNT 0.1 K/uL (0-0.3); IMMATURE GRANULOCYTE (%) 4.6 % (0.0-0.7); IMMATURE GRANULOCYTE COUNT 0.6 K/uL; INSTRUMENT ABS NEUTROPHIL CT 10.4 K/uL; LYMPHOCYTE COUNT 0.8 K/uL (1.0-2.8); MCH 27.2 PG (29.0-34.0); MCHC 31.4 G/DL (30.0-36.0); MCV 86.7 FL (83-99); MEAN PLAT.VOLUME 13.5 uM^3 (9.5-12.4); MONOCYTE COUNT 0.9 K/uL (0-0.8); NEUTROPHIL (%) 80.2 % (45-76); NEUTROPHIL COUNT 10.4 K/uL (1.8-6.4); PLATELET COUNT 236 K/uL (156-360); RBC DIS.WIDTH-CV 17.2 % (11.8-14.6); RBC DIS.WIDTH-SD 54.4 % (39-53); RED BLOOD COUNT 3.23 M/uL (3.80-5.20)
[2017-08-04 08:05] LABS: ANION GAP 8 MEQ/L (2-14); CHLORIDE 109 MEQ/L (99-109); GFR ESTIMATE (CALCULATED) 33 mL/min/; GLUCOSE 95 mg/dL (70-99); POTASSIUM 4.2 MEQ/L (3.7-5.4); SAMPLE HEMOLYSIS CHECK 0; SAMPLE ICTERIC CHECK 0; SAMPLE LIPEMIA CHECK 0; SODIUM 145 MEQ/L (136-147); UREA NITROGEN (BUN) 17 mg/dL (9-23)
[2017-08-04 08:06] LABS: MAGNESIUM 1.9 mg/dl (1.3-2.7)
[2017-08-04 08:26] VITALS: BP 142/60
[2017-08-04 15:59] VITALS: BP 142/66
[2017-08-05 00:02] VITALS: BP 138/67
[2017-08-05 07:27] VITALS: BP 127/59
[2017-08-05 16:37] VITALS: BP 124/71
[2017-08-05 21:30] VITALS: BP 142/48
[2017-08-05 23:23] VITALS: BP 132/72
[2017-08-06 07:18] LABS: ANION GAP 7 MEQ/L (2-14); CHLORIDE 104 MEQ/L (99-109); GFR ESTIMATE (CALCULATED) 33 mL/min/; GLUCOSE 73 mg/dL (70-99); POTASSIUM 4.5 MEQ/L (3.7-5.4); SAMPLE HEMOLYSIS CHECK 0; SAMPLE ICTERIC CHECK 0; SAMPLE LIPEMIA CHECK 0; SODIUM 139 MEQ/L (136-147); UREA NITROGEN (BUN) 15 mg/dL (9-23)
[2017-08-06 07:33] VITALS: BP 146/72
[2017-08-06] MEDS ORDERED: VANCOCIN HCL125 MG PO (10:50)
[2017-08-06] MEDS ORDERED: FLUCONAZOLE200 MG PO (10:50)
[2017-08-06] MEDS ORDERED: Magic Mouthwash Garg MM (10:51)
== END 2017-08-06 15:45 | DRG 871 ==
LOC: EME 13:56 → EDOF 19:58 → 5SOUTH 19:58 → ENRESERV 20:00 → 5SOUTH 21:24
PROVIDERS: Hospitalist; Internal Medicine Nephrology; Nurse Practitioner Adult Health; Physician Assistant Medical
DX: A41.9 Sepsis, unspecified organism (principal); A04.72 Enterocolitis due to Clostridium difficile, not specified as recurrent; N17.1 Acute kidney failure with acute cortical necrosis; R62.7 Adult failure to thrive; E87.6 Hypokalemia; M10.9 Gout, unspecified; I12.9 Hypertensive chronic kidney disease with stage 1 through stage 4 chronic kidney disease, or unspecified chronic kidney disease; I73.9 Peripheral vascular disease, unspecified; K44.9 Diaphragmatic hernia without obstruction or gangrene; N18.3 Chronic kidney disease, stage 3 (moderate); E78.5 Hyperlipidemia, unspecified; E83.42 Hypomagnesemia; K22.70 Barrett's esophagus without dysplasia; J90 Pleural effusion, not elsewhere classified; F32.9 Major depressive disorder, single episode, unspecified; E87.2 Acidosis; E44.0 Moderate protein-calorie malnutrition; E87.1 Hypo-osmolality and hyponatremia; K21.9 Gastro-esophageal reflux disease without esophagitis; B37.0 Candidal stomatitis; E87.0 Hyperosmolality and hypernatremia; Z66 Do not resuscitate; K92.2 Gastrointestinal hemorrhage, unspecified; E86.0 Dehydration; D64.9 Anemia, unspecified; Z68.1 Body mass index [BMI] 19.9 or less, adult; W18.30XA Fall on same level, unspecified, initial encounter; S22.42XA Multiple fractures of ribs, left side, initial encounter for closed fracture; F41.9 Anxiety disorder, unspecified; Z85.828 Personal history of other malignant neoplasm of skin; Z87.19 Personal history of other diseases of the digestive system; Z91.81 History of falling; Z79.899 Other long term (current) drug therapy
CPT/HCPCS: 74176; 74230; 80048; 80048 91; 80053; 81003; 82436; 82575; 82803; 83605; 83690; 83735; 83935; 84100; 84133; 84300; 85025; 85025 91; 85027; 85610; 85651; 87040; 87070; 87177; 87205; 87493; 87506; 87651 90; 92526 GN; 92610 GN; 92611 GN; 93005; 97530 GO; 99281; 99285; C1755; C9113; J1644; J1956; J2405; J3475; J3480; J7030; J7070; Q0167; S0028; S0030